=== PATIENT | female | born 1990 | race Caucasian/White ===

== ENCOUNTER 2017-03-06 07:52 | Inpatient (IN) | payer BC ==
[~2017-03-06] VITALS: Ht 175.3 cm; Wt 93.0 kg
[~2017-03-06 07:52] MED LIST: PRENATAL TABLE1 EAC3 PO; ZOFRAN ODT8 MG PO
[2017-03-06 08:14] VITALS: BP 124/72
[2017-03-06 09:19] LABS: HEMATOCRIT 31.9 % (36.0-46.0); MCH 30.9 PG (29.0-34.0); MCHC 34.8 G/DL (30.0-36.0); MCV 88.9 FL (83-99); PLATELET COUNT 231 K/uL (156-360); RBC DIS.WIDTH-CV 12.9 % (11.8-14.6); RBC DIS.WIDTH-SD 41.7 % (39-53); RED BLOOD COUNT 3.59 M/uL (3.80-5.20); WHITE BLOOD COUNT 10.6 K/uL (4.1-10.2)
[2017-03-06] MEDS ORDERED: ENDOCET 5-3251 EACH PO (11:38)
[2017-03-06] MEDS ORDERED: IBUPROFEN800 MG PO (11:38)
[2017-03-06 13:13] VITALS: BP 121/78
[2017-03-06 14:17] VITALS: BP 117/59
[2017-03-06 15:31] VITALS: BP 115/67
[2017-03-06 16:47] VITALS: BP 113/61
[2017-03-07 07:37] VITALS: BP 111/57
[2017-03-07 07:49] LABS: EOSINOPHIL (%) 0.4 % (0-5); EOSINOPHIL COUNT 0.1 K/uL (0-0.3); HEMATOCRIT 26.8 % (36.0-46.0); IMMATURE GRANULOCYTE (%) 1.1 % (0.0-0.7); IMMATURE GRANULOCYTE COUNT 0.1 K/uL; INSTRUMENT ABS NEUTROPHIL CT 8.5 K/uL; LYMPHOCYTE COUNT 2.4 K/uL (1.0-2.8); MCH 30.8 PG (29.0-34.0); MCV 90.8 FL (83-99); MONOCYTE (%) 7.3 % (3-12); MONOCYTE COUNT 0.9 K/uL (0-0.8); NEUTROPHIL COUNT 8.5 K/uL (1.8-6.4); PLATELET COUNT 206 K/uL (156-360); RBC DIS.WIDTH-SD 42.7 % (39-53); RED BLOOD COUNT 2.95 M/uL (3.80-5.20)
[2017-03-07 11:44] VITALS: BP 113/67
[2017-03-07 15:35] VITALS: BP 132/65
[2017-03-07 19:30] VITALS: BP 121/56
[2017-03-07 23:18] VITALS: BP 113/58
[2017-03-08 03:15] VITALS: BP 117/59
[2017-03-08 07:11] VITALS: BP 109/64
[2017-03-08 12:09] VITALS: BP 120/70
[2017-03-08 15:35] VITALS: BP 125/74
[2017-03-08 23:20] VITALS: BP 136/73
[2017-03-09 08:54] VITALS: BP 132/77
[2017-03-09 14:56] VITALS: BP 131/69
[2017-03-09 23:00] VITALS: BP 131/75
== END 2017-03-10 12:44 | disposition home or self-care (01) | DRG 765 ==
LOC: 2WEST 07:52 → 2SOUTH 09:01 → 2WEST 10:45
PROVIDERS: Obstetrics & Gynecology
PROC: 10D00Z1 Extraction of Products of Conception, Low, Open Approach (ICD-10-PCS; principal; 2017-03-06)
DX: O32.8XX0 Maternal care for other malpresentation of fetus, not applicable or unspecified (principal); O36.5930 Maternal care for other known or suspected poor fetal growth, third trimester, not applicable or unspecified; O99.824 Streptococcus B carrier state complicating childbirth; Z3A.37 37 weeks gestation of pregnancy; Z37.0 Single live birth; Z86.001 Personal history of in-situ neoplasm of cervix uteri
CPT/HCPCS: 85025; 85027; 86850; 86900; 86901; 88307; J0690; J1100; J1170; J2250; J2274; J2300; J2405; J2590; J2765; J7120